=== PATIENT | female | born 1945 | race Caucasian/White ===

== ENCOUNTER 2024-05-06 14:28 | Outpatient (CLI) | payer MEDICARE, BC | END 2024-05-06 14:29 | disposition home or self-care (01) | LOC: CSHRAD 14:28 | PROVIDERS: ATTEND Nurse Practitioner | DX: M53.3 Sacrococcygeal disorders, not elsewhere classified (principal); S09.90XD Unspecified injury of head, subsequent encounter | CPT/HCPCS: 70450; 72170 ==

== ENCOUNTER 2024-09-08 10:55 | Outpatient (CLI) | payer MEDICARE, BC | END 2024-09-08 10:56 | disposition home or self-care (01) | LOC: CSHRAD 10:55 | PROVIDERS: ATTEND Psychiatry & Neurology Neurology | DX: M48.02 Spinal stenosis, cervical region (principal); M47.812 Spondylosis without myelopathy or radiculopathy, cervical region; E53.8 Deficiency of other specified B group vitamins; Z79.899 Other long term (current) drug therapy | CPT/HCPCS: 36415; 72040; 80048; 82607; 82746; 84443; 85025 ==